=== PATIENT | female | born 1970 ===

== ENCOUNTER 2017-12-11 16:50 | Emergency (ER) | payer SELFPAY ==
[2017-12-11 18:04] VITALS: BMI 29.9
--- NOTE | 2017-12-11 18:39 | C.PDOC ---
History Of Present Illness 47 y/o female presents to ED for evaluation of left lateral neck pain localized for 3 weeks and low abdominal pain associated with urinary discomfort for 1 week. Patient states neck pain is worse with head rotation and has taken Ibuprofen with mild relief. Patient denies known trauma, fever, chills, throat pain, nausea, vomiting, back pain or hematuria. Time Seen by Provider: 12/11/17 18:16 Chief Complaint (Nursing): Back Pain History Per: Patient History/Exam Limitations: no limitations Onset/Duration Of Symptoms: Days Current Symptoms Are (Timing): Still Present Quality Of Discomfort: "Pain" Past Medical History Reviewed: Historical Data, Nursing Documentation, Vital Signs Vital Signs: Last Vital Signs Temp 98.1 F 12/11/17 18:06 Pulse 77 12/11/17 18:06 Resp 17 12/11/17 18:06 BP 148/97 H 12/11/17 18:06 Pulse Ox 99 12/11/17 18:41 - Medical History PMH: Asthma, HTN Surgical History: No Surg Hx - [facility] Procedures LOW CERVICAL (02/09/14) Family History: States: No Known Family Hx - Social History Hx Tobacco Use: No Hx Alcohol Use: No Hx Substance Use: No - Immunization History Hx Tetanus Toxoid Vaccination: No Hx Influenza Vaccination: No Hx Pneumococcal Vaccination: No Review Of Systems Constitutional: Negative for: Fever, Chills ENT: Negative for: Throat Pain Gastrointestinal: Positive for: Abdominal Pain Genitourinary: Positive for: Frequency. Negative for: Dysuria, Hematuria Musculoskeletal: Positive for: Neck Pain Skin: Negative for: Rash Physical Exam - Physical Exam Appears: Non-toxic, No Acute Distress Skin: Warm, Dry, No Rash Head: Normacephalic Eye(s): bilateral: PERRL Oral Mucosa: Moist Throat: No Erythema, No Drooling Neck: Normal ROM, Trachea Midline, No Midline Cervical Tenderness, No Paracervical Tenderness, No Step Off Deformity, Other (mild tenderness over left SCM muscle with mild spasm. No palpable edformity, no skin changes.) Cardiovascular: Rhythm Regular Respiratory: No Decreased Breath Sounds, No Rales, No Rhonchi, No Wheezing Gastrointestinal/Abdominal: Soft, Tenderness (Suprapubic), No Organomegaly, No Distention, No Guarding, No Rebound Back: No CVA Tenderness Extremity: Normal ROM, No Pedal Edema Neurological/Psych: Oriented x3, Normal Speech, Normal Cognition ED Course And Treatment O2 Sat by Pulse Oximetry: 99 (RA) Pulse Ox Interpretation: Normal Progress Note: On re-evaluation, pt is afebrile, hemodynamicaly stable. non- toxic. Tolerate Po well in ED. Neck: Supple, (-) meningeal sign. Lungs: CTA B/L , BS equal B/L. Abd: benign, (-) guarding, (-) rebound. Back: (-) cva tenderness. Neurologicaly intact. UA results review and appears normal. Pt has clinical findings c/w Left sided lateral cervical strain, muscle spasm, and dysuria. Pt advised. ref. to f/u with PMD in 2-3 days for re-eval. return to ED if any worsening or new changes. Disposition Counseled Patient/Family Regarding: Studies Performed, Diagnosis, Need For Followup, Rx Given - Disposition Referrals: [facility] [Outside] Disposition: HOME/ ROUTINE Disposition Time: 19:30 Condition: STABLE Additional Instructions: Encourage fluids take medication as prescribed Follow up with PMD in 2 days for re-evaluation. return if any new changes. Prescriptions: Ciprofloxacin [Cipro] 1 tab PO BID #14 tab Ibuprofen [Motrin Tab] 600 mg PO Q6 #14 tab Methocarbamol [Robaxin] 500 mg PO TID #14 tab Instructions: Cervical Muscle Strain, Dysuria, Adult (DC) Forms: [employer] (Kazakh) Print Language: MAORI - Clinical Impression Clinical Impression: Cervical strain, Dysuria - PA / HEAD LIBRARIAN / Resident Statement MD/DO has reviewed & agrees with the documentation as recorded. - Scribe Statement The provider has reviewed the documentation as recorded by the Kassieibbenjamin Farias All medical record entries made by the Kassieibbenjamin were at my direction and personally dictated by me. I have reviewed the chart and agree that the record accurately reflects my personal performance of the history, physical exam, medical decision making, and the department course for this patient. I have also personally directed, reviewed, and agree with the discharge instructions and disposition.
[2017-12-11 18:59] LABS: HCG,QUALITATIVE URINE NEGATIVE (NEGATIVE)
[2017-12-11 19:45] LABS: SQUAMOUS EPITHIAL 3 /hpf (0-5)
[2017-12-11 19:46] LABS: PH,URINE 7.5 (5.0-8.0); URINE BILIRUBIN NEGATIVE (NEGATIVE); URINE BLOOD NEGATIVE (NEGATIVE); URINE CLARITY CLEAR (Clear); URINE COLOR YELLOW (YELLOW); URINE GLUCOSE (UA) NEGATIVE (Normal); URINE LEUKOCYTE ESTERASE NEGATIVE Leu/uL (Negative); URINE PROTEIN NEGATIVE (NEGATIVE); URINE UROBILINOGEN 0.2 mg/dL (0.2-1.0)
[2017-12-11 20:16] VITALS: BP 146/90; PULSE 74; RESP 18; TEMP 98.3; O2SAT 100
== END 2017-12-11 20:17 | disposition home or self-care (01) ==
LOC: C.ER 16:50
DX: S16.1XXA Strain of muscle, fascia and tendon at neck level, initial encounter (principal); X58.XXXA Exposure to other specified factors, initial encounter; R30.0 Dysuria

== ENCOUNTER 2018-07-19 10:41 | Emergency (ER) | payer OTHER ==
[2018-07-19 10:41] VITALS: BMI 29.9
[2018-07-19 10:50] VITALS: BP 137/87; PULSE 72; RESP 19; TEMP 98.1; O2SAT 99
[2018-07-19] MEDS ORDERED: Amoxicillin-Clav 875-125 mg Tab PO STA (11:27)
[2018-07-19] MEDS ORDERED: Tetracaine 0.5% Ophth 2 ML BOTTLE OS ONE (11:29)
[2018-07-19] MEDS ORDERED: Tetracaine 0.5% Ophth (OR ONLY) ONE (11:33)
[2018-07-19] MEDS ORDERED: Amoxicillin-Clav 875-125 mg Tab PO ONE ×2 (11:36→12:21)
--- NOTE | 2018-07-19 12:06 | C.PDOC ---
History Of Present Illness 48 year old female presents to the ED for evaluation of left eye pain, swelling, and itching that began last night. Patient reports pain and itching to the eye starting last night, notes waking up this morning with yellow discharge, swelling and pain around the eye. She notes pain with eye movement. Denies recent changes in diet/soaps, fever, nausea, vomiting, change in vision, and any other associated symptoms. Time Seen by Provider: 07/19/18 10:57 Chief Complaint (Nursing): Eye Problem History Per: Patient History/Exam Limitations: no limitations Onset/Duration Of Symptoms: Hrs Current Symptoms Are (Timing): Still Present Injury To Eye?: No Wears Contact Lens?: No Recent travel outside of the [place]: No Past Medical History Reviewed: Historical Data, Nursing Documentation, Vital Signs Vital Signs: Last Vital Signs Temp 98.1 F 07/19/18 10:46 Pulse 72 07/19/18 10:46 Resp 19 07/19/18 10:46 BP 137/87 07/19/18 10:46 Pulse Ox 99 07/19/18 10:46 - Medical History PMH: Asthma, HTN - [facility] Procedures LOW CERVICAL (02/09/14) Family History: States: Unknown Family Hx - Social History Hx Tobacco Use: No Hx Alcohol Use: No Hx Substance Use: No - Immunization History Hx Tetanus Toxoid Vaccination: No Hx Influenza Vaccination: No Hx Pneumococcal Vaccination: No Review Of Systems Constitutional: Negative for: Fever Eyes: Positive for: Pain (left. ), Eyelid Inflammation, Redness. Negative for: Vision Change Gastrointestinal: Negative for: Nausea, Vomiting Physical Exam - Physical Exam Appears: Non-toxic Skin: Warm, Dry, No Rash Head: Atraumatic, Normacephalic Eye(s): bilateral: PERRL, EOMI, right: Normal Inspection, left: Other (periorbital swelling. Connjunctival injection, eyelid crusting. No foreign body on lid eversion) Nose: Normal, No Discharge Oral Mucosa: Moist Neck: Normal ROM, Supple Neurological/Psych: Oriented x3, Normal Speech, Normal Motor ED Course And Treatment O2 Sat by Pulse Oximetry: 99 (RA) Pulse Ox Interpretation: Normal Medical Decision Making Medical Decision Making: Plan: -Augmentin Benadryl Tetracaine Prednisone Progress/Update: Patient is stable for discharge home. Advised to follow up with PMD. Disposition - Disposition Referrals: Walter Rocha MD [Staff Provider] - Disposition: HOME/ ROUTINE Disposition Time: 12:12 Condition: STABLE Additional Instructions: Follow up with the Eye doctor within 1-2 days without fail. Return if worsened. Prescriptions: Amoxicillin/Clavulanate [Augmentin 875 MG-125 MG] 1 tab PO BID #14 tab DiphenhydrAMINE [Benadryl] 25 mg PO QID #28 cap predniSONE [Prednisone] 10 mg PO BID #10 tab Tobramycin 0.3% [Tobramycin 5 Ml] 1 drop OS TID #1 bottle Instructions: Conjunctivitis (Pinkeye) (DC) Forms: [employer] (Mongolian), Work Excuse Print Language: SINHALA - Clinical Impression Clinical Impression: Conjunctivitis - PA / HEDIS REGISTERED NURSE RN / Resident Statement MD/DO has reviewed & agrees with the documentation as recorded. - Scribe Statement The provider has reviewed the documentation as recorded by the Scribe (Caroline Valderrama) All medical record entries made by the Scribe were at my direction and personally dictated by me. I have reviewed the chart and agree that the record accurately reflects my personal performance of the history, physical exam, medical decision making, and the department course for this patient. I have also personally directed, reviewed, and agree with the discharge instructions and disposition.
== END 2018-07-19 12:21 | disposition home or self-care (01) ==
LOC: C.ER 10:41
DX: H10.9 Unspecified conjunctivitis (principal)

== ENCOUNTER 2019-01-07 09:19 | Emergency (ER) | payer OTHER ==
[2019-01-07 09:19] VITALS: BMI 29.9
[2019-01-07 09:24] VITALS: O2SAT 99
[2019-01-07] MEDS ORDERED: Naproxen 550 mg Tab PO STA (09:57)
[2019-01-07] MEDS ORDERED: Naproxen 550 mg Tab PO ONE (10:10)
--- NOTE | 2019-01-07 10:38 | RAD ---
Date of service: 01/07/2019 PROCEDURE: Cervical Spine Radiographs. HISTORY: Pain. COMPARISON: None available. TECHNIQUE: 3 views obtained. FINDINGS: BONES: Alignment maintained. No fracture. Dens Intact. DISC SPACES: Normal. SOFT TISSUES: Normal. No prevertebral soft tissue swelling. OTHER FINDINGS: None. IMPRESSION: Normal cervical spine radiographs
--- NOTE | 2019-01-07 10:49 | C.PDOC ---
History Of Present Illness 48 year old female presents to ED with complaint of left lateral neck pain radiating to the left face and numbness and tingling down the left arm for the past 2 days. He denies facial numbness, facial droop, headache, slurred speech, extremity weakness, visual changes, chest pain, palpations, or SOB. Time Seen by Provider: 01/07/19 09:26 Chief Complaint (Nursing): Weakness/Neurological Deficit History Per: Patient History/Exam Limitations: no limitations Onset/Duration Of Symptoms: Days (2) Current Symptoms Are (Timing): Still Present Fall Associated With With Symptoms: No Past Medical History Reviewed: Historical Data, Nursing Documentation, Vital Signs Vital Signs: Last Vital Signs Temp 98.9 F 01/07/19 09:24 Pulse 84 01/07/19 09:24 Resp 18 01/07/19 09:24 BP 164/91 H 01/07/19 09:24 Pulse Ox 99 01/07/19 09:24 Primary Care Provider: FAMILY PROVIDER,NO - Medical History PMH: Asthma, HTN Surgical History: No Surg Hx - [facility] Procedures LOW CERVICAL (02/09/14) Family History: States: Unknown Family Hx - Social History Hx Tobacco Use: No Hx Alcohol Use: No Hx Substance Use: No - Immunization History Hx Tetanus Toxoid Vaccination: No Hx Influenza Vaccination: No Hx Pneumococcal Vaccination: No Review Of Systems Constitutional: Negative for: Fever, Chills, Weakness Eyes: Positive for: Other (left facial pain). Negative for: Vision Change Cardiovascular: Negative for: Chest Pain, Palpitations Respiratory: Negative for: Shortness of Breath Musculoskeletal: Positive for: Neck Pain (pain to the left lateral side of the neck), Other Neurological: Positive for: Numbness (numbness and tingling to the left arm ). Negative for: Change in Speech (slurred speech), Headache Physical Exam - Physical Exam Appears: Non-toxic, Other (mild pain ) Skin: Normal Color, Warm, Dry Head: Atraumatic, Normacephalic Eye(s): bilateral: Normal Inspection, PERRL, EOMI Neck: Other (tenderness to the left lateral neck, no swelling) Chest: Symmetrical, No Deformity Cardiovascular: Rhythm Regular, No Murmur Respiratory: No Accessory Muscle Use, No Rales, No Rhonchi, No Wheezing Gastrointestinal/Abdominal: Soft, No Tenderness Extremity: Normal ROM, Tenderness (left superior shoulder tender to palpation), Capillary Refill (<2 seconds), No Swelling Extremity: Bilateral: Atraumatic, Normal Color And Temperature, Normal ROM Pulses: Left Radial: Normal, Right Radial: Normal Neurological/Psych: Oriented x3, Normal Speech, Normal Cognition, Normal Motor, No Normal Sensation (subjective decreased sensation on the left arm ) Gait: Steady ED Course And Treatment O2 Sat by Pulse Oximetry: 99 (in RA) Pulse Ox Interpretation: Normal - Other Rad C-spine X-ray X-Ray: Viewed By Me Interpretation: IMPRESSION: Normal cervical spine radiographs Progress Note: Patient given Naproxen and Flexeril. C-spine X-ray ordered for patient. Glucose POC and POC U-preg ordered for patient. Disposition Counseled Patient/Family Regarding: Studies Performed, Diagnosis, Need For Followup, Rx Given - Disposition Referrals: [facility] [Outside] Disposition: HOME/ ROUTINE Disposition Time: 10:50 Condition: STABLE Additional Instructions: FOLLOW UP WITH YOUR DOCTOR/CLINIC IN 1-2 DAYS USE MEDICATIONS NEEDED RETURN TO EMERGENCY ROOM IF YOUR SYMPTOMS BECOME WORSE SEGUIR CON [place]ST[place]O MDICO / CLNICA EN 1-2 SCHRO[address] UTILICE MEDICAMENTOS TERESA SE NECESITE VUELVA A LA [facility] DE [facility]ERGENC[facility] SI [place] SE [facility] [place] Prescriptions: Cyclobenzaprine [Flexeril] 10 mg PO BID PRN #15 tab PRN Reason: Muscle Spasm Naproxen 375 mg PO BID PRN #20 tablet PRN Reason: pain Instructions: Radiculopathy (DC) Forms: [employer] (Romanian) Print Language: DIVEHI - Clinical Impression Clinical Impression: Cervical radiculopathy - Scribe Statement The provider has reviewed the documentation as recorded by the Scribe (Mary Aguayo) All medical record entries made by the Scribe were at my direction and personally dictated by me. I have reviewed the chart and agree that the record accurately reflects my personal performance of the history, physical exam, medical decision making, and the department course for this patient. I have also personally directed, reviewed, and agree with the discharge instructions and disposition.
[2019-01-07 11:04] VITALS: BP 147/82; PULSE 66; RESP 16; TEMP 98.1
== END 2019-01-07 11:10 | disposition home or self-care (01) ==
LOC: C.ER 09:19
DX: M54.12 Radiculopathy, cervical region (principal); I10 Essential (primary) hypertension

== ENCOUNTER 2019-01-14 20:54 | Emergency (ER) | payer SELFPAY ==
[2019-01-14 20:55] VITALS: BMI 29.9
[2019-01-14 22:05] LABS: BASO % 0.7 % (0.0-2.0); EOS # 0.3 K/uL (0.0-0.7); EOS % 4.3 % (0.0-4.0); HEMOGLOBIN 11.8 g/dL (11.0-16.0); LYMPH # 2.9 K/uL (1.0-4.3); LYMPH % 42.3 % (20.0-40.0); MEAN CELL VOLUME 92.8 fL (81.0-99.0); MEAN CORPUSCULAR HEMOGLOBIN 31.3 pg (27.0-31.0); MEAN CORPUSCULAR HGB CONC 33.7 g/dL (33.0-37.0); MEAN PLATELET VOLUME 9.2 fL (7.2-11.7); MONO # 0.7 K/uL (0.0-0.8); MONO % 9.8 % (0.0-10.0); NEUT # 2.9 K/uL (1.8-7.0); NEUT % 42.9 % (50.0-75.0); RBC 3.77 Mil/uL (3.80-5.20); WHITE BLOOD COUNT 6.8 K/uL (4.8-10.8)
[2019-01-14 22:13] LABS: SQUAMOUS EPITHIAL 1 /hpf (0-5); URINE BILIRUBIN NEGATIVE (NEGATIVE); URINE BLOOD NEGATIVE (NEGATIVE); URINE CLARITY Clear (Clear); URINE COLOR Yellow (YELLOW); URINE GLUCOSE (UA) NORMAL (Normal); URINE LEUKOCYTE ESTERASE NEG Leu/uL (Negative); URINE PROTEIN NEGATIVE (NEGATIVE); URINE UROBILINOGEN NORMAL mg/dL (0.2-1.0)
[2019-01-14 22:31] LABS: ALB/GLOB RATIO 1.4 (1.0-2.1); ALBUMIN 4.1 g/dL (3.5-5.0); ALT/SGPT 26 U/L (9-52); AST/SGOT 29 U/L (14-36); BLOOD UREA NITROGEN 13 mg/dL (7-17); CALCIUM 9.2 mg/dl (8.6-10.4); GFR NON-AFRICAN AMERICAN > 60
[2019-01-14 22:35] VITALS: RESP 16
--- NOTE | 2019-01-14 23:18 | C.PDOC ---
History Of Present Illness 48 year old female presents with left neck pain for the past 22 days. Patient states she was lifting heavy laundry and since then has had the pain. She reports the pain worsens when turning her neck from left to right and pressing o n the left. She was seen here a week ago for the same complaining, had x-ray done which was negative, discharged with ibuprofen and flexeril which she says has helped but states pain recurs after medication wears off. Patient's secondary complaint is that she feels swollen all over for the past 2 days. She takes medication for HTN but no new medication. Denies other PMHx, chest pain, SOB, cough, or weakness. Time Seen by Provider: 01/14/19 21:09 Chief Complaint (Nursing): Back Pain History Per: Patient History/Exam Limitations: no limitations Onset/Duration Of Symptoms: Days Current Symptoms Are (Timing): Still Present Quality Of Discomfort: Unable To Describe Associated Symptoms: None Exacerbating Factor(s): Turning, Other (Palpation) Recent travel outside of the [place]: No Past Medical History Reviewed: Historical Data, Nursing Documentation, Vital Signs Vital Signs: Last Vital Signs Temp 98.2 F 01/14/19 22:34 Pulse 80 01/14/19 22:34 Resp 16 01/14/19 22:34 BP 127/75 01/14/19 22:34 Pulse Ox 99 01/14/19 22:34 Primary Care Provider: FAMILY PROVIDER,NO - Medical History PMH: Asthma, HTN - [facility] Procedures LOW CERVICAL (02/09/14) Family History: States: Unknown Family Hx - Social History Hx Tobacco Use: No Hx Alcohol Use: No Hx Substance Use: No - Immunization History Hx Tetanus Toxoid Vaccination: No Hx Influenza Vaccination: No Hx Pneumococcal Vaccination: No Review Of Systems Constitutional: Negative for: Fever, Chills Cardiovascular: Negative for: Chest Pain, Palpitations Respiratory: Negative for: Cough, Shortness of Breath Musculoskeletal: Positive for: Neck Pain Skin: Negative for: Rash Neurological: Negative for: Weakness, Numbness Physical Exam - Physical Exam Appears: Well, Non-toxic, No Acute Distress Skin: Normal Color, Warm Head: Atraumatic, Normacephalic Eye(s): bilateral: Normal Inspection Oral Mucosa: Moist Neck: Other (Tenderness to left neck with palpation, increased pain with turning to the left or right.) Cardiovascular: Rhythm Regular Respiratory: Normal Breath Sounds, No Accessory Muscle Use, Other (Normal inspiratory effort) Extremity: Pedal Edema (Bilateral, no erythema or heat.), Other (Full ROMx4, pain radiates to left arm with ROM) Neurological/Psych: Oriented x3, Normal Speech, Normal Motor, Normal Sensation Gait: Steady ED Course And Treatment - Laboratory Results Result Diagrams: 01/14/19 22:01/14/19 22: Lab Results: Total Bilirubin 0.4 mg/dL (0.2-1.3) 01/14/19 22: AST 29 U/L (14-36) 01/14/19 22: ALT 26 U/L (9-52) 01/14/19 22: Alkaline Phosphatase 60 U/L (38-126) 01/14/19 22: Total Protein 7.1 g/dL (6.3-8.3) 01/14/19 22: Albumin 4.1 g/dL (3.5-5.0) 01/14/19: Globulin 3.0 gm/dL (2.2-3.9) 01/14/19 22: Albumin/Globulin Ratio 1.4 (1.0-2.1) 01/14/19 22: Urine Color Yellow (YELLOW) 01/14/19: Urine Clarity Clear (Clear) 01/14/19 22: Urine pH 6.0 (5.0-8.0) 01/14/19 22: Ur Specific [place] 1.008 (1.003-1.030) 01/14/19 22: Urine Protein Negative mg/dL (NEGATIVE) 01/14/19: Urine Glucose (UA) Normal mg/dL (Normal) 01/14/19 22: Urine Ketones Negative mg/dL (NEGATIVE) 01/14/19 22: Urine Blood Negative (NEGATIVE) 01/14/19: Urine Nitrate Negative (NEGATIVE) 01/14/19 22: Urine Bilirubin Negative (NEGATIVE) 01/14/19 22: Urine Urobilinogen Normal mg/dL (0.2-1.0) 01/14/19 22: Ur Leukocyte Esterase Neg Rolo/uL (Negative) 01/14/19: Urine WBC (Auto) < 1 /hpf (0-5) 01/14/19 22:01 Urine RBC (Auto) < 1 /hpf (0-3) 01/14/19 22:01 Ur Squamous Epith Cells 1 /hpf (0-5) 01/14/19 22:01 O2 Sat by Pulse Oximetry: 99 (Room air) Pulse Ox Interpretation: Normal Medical Decision Making Medical Decision Making: Pain meds given and basic labs ordered. Labs do not show any acute markers for cause of peripheral edema. the patient later added that she recently started taking amlodipine 1 month ago. this is most likely the cause of her edema. she will be referred back to her pcp. Disposition Counseled Patient/Family Regarding: Studies Performed, Diagnosis, Need For Followup - Disposition Disposition: HOME/ ROUTINE Disposition Time: 23:45 Condition: STABLE Instructions: Swelling, Radiculopathy Forms: [employer] Discharge Inst [employer] (Gibraltarian) Print Language: ARABIC - Clinical Impression Clinical Impression: Cervical radiculopathy, Pedal edema - PA / MEDICAL APPOINTMENT SCHEDULER / Resident Statement MD/DO has reviewed & agrees with the documentation as recorded. - Scribe Statement The provider has reviewed the documentation as recorded by the Scribe Walter Dowling All medical record entries made by the Kassieibbenjamin were at my direction and personally dictated by me. I have reviewed the chart and agree that the record accurately reflects my personal performance of the history, physical exam, medical decision making, and the department course for this patient. I have also personally directed, reviewed, and agree with the discharge instructions and disposition.
[2019-01-15 00:01] VITALS: BP 125/76; PULSE 84; TEMP 98
--- NOTE | 2019-01-15 09:00 | RAD ---
Date of service: 01/14/2019 HISTORY: chf COMPARISON: No prior. TECHNIQUE: Chest PA and lateral views FINDINGS: LUNGS: No active pulmonary disease. PLEURA: No significant pleural effusion identified. No pneumothorax apparent. CARDIOVASCULAR: No aortic atherosclerotic calcification present. Normal cardiac size. No pulmonary vascular congestion. OSSEOUS STRUCTURES: No significant abnormalities. VISUALIZED UPPER ABDOMEN: Normal. OTHER FINDINGS: None. IMPRESSION: No active disease.
[2019-01-17 06:45] VITALS: O2SAT 99
== END 2019-01-15 00:02 | disposition home or self-care (01) ==
LOC: C.ER 20:54
DX: M54.12 Radiculopathy, cervical region (principal); R60.0 Localized edema